=== PATIENT | male | born 1980 | race Caucasian/White ===

== ENCOUNTER 2024-12-01 22:21 | Emergency (ER) | payer SELFPAY ==
[2024-12-01 22:28] VITALS: BP 181/104
[2024-12-02 00:37] VITALS: BP 174/115
[2024-12-02 01:17] LABS: % Basophils 0.4 % (0-2); % Eosinophils 1.1 % (0-6); % Immature Granulocytes 0.2 % (0-0.5); % Lymphocytes 8.4 % (20.5-51.1); % Monocytes 5.8 % (1.7-9.3); % Neutrophils 84.1 % (42.2-75.2); Absolute Basophils 0.1 10^3/uL (0-0.2); Absolute Eosinophils 0.2 10^3/uL (0-0.7); Absolute Lymphocytes 1.1 10^3/uL (1.2-3.4); Absolute Monocytes 0.8 10^3/uL (0.1-0.6); Absolute Neutrophils 11.1 10^3/uL (1.4-6.5); Hematocrit 39.7 % (39.0-52.0); Hemoglobin 13.7 g/dL (13.0-18.0); Mean Corp Hgb Conc. 34.5 g/dL (33.0-37.0); Mean Corpuscular Hgb 28.8 pg (27.0-31.0); Mean Corpuscular Volume 83.4 fL (80.0-94.0); Mean Platelet Volume 10.3 fL (7.4-10.4); Nucleated Red Blood Cells % 0 % (-); Platelet Count 240 10^3/uL (130-400); Red Blood Cell Count 4.76 10^6/uL (4.70-6.10); Red Cell Dist. Width 12.4 % (11.5-14.5); White Blood Cell Count 13.2 10^3/uL (4.8-10.8)
[2024-12-02 01:33] LABS: Blood Urea Nitrogen 18 mg/dl (9-20); Carbon Dioxide 28 mmol/L (22-30); Chloride 105 mmol/L (98-107); Glucose 113 mg/dl (70-99); Potassium 4.4 mmol/L (3.5-5.1); Sodium 140 mmol/L (135-145); Uric Acid 9.2 mg/dl (3.5-8.5); eGFR 46.72
[2024-12-02] MEDS: DELTASONE 40 MG PO (01:56)
--- NOTE | 2024-12-02 02:07 | ED.MUSCINJ ---
HPI-Injury
General
Chief Complaint: Musculo-Skeletal Complaint
Source: patient
Exam Limitations: none
Time Seen by Provider: 12/02/24 00:42
Nursing documentation reviewed up to this point in time: agreed with
History of Present Illness-Injury
Is this injury a work related problem?: No
Is pt an associate of [facility]/[place]?: No
Initial Injury comments:
Patient to ED with complaint of right foot pain. States he hit the back of his foot with a trash can while at work 2 weeks ago. States initially had pain but this improved over the next few days. States over the past 1-2 days pain has retuened.
Broight to ED by brother for eval. He denies fever/chills.
Past History
Past History
ED Past Medical History: Other (eczema)
ED Past Surgical History: None
Social History
Tobacco: Non-smoker
Personal: Single
Living: with family
Employment: Employed ([employer])
Family History
Family History: Other (Noncontributory)
Review of Systems
Review of Systems
Allergies reviewed?: Yes
All Other Systems: ROS reviewed and negative except as documented in HPI and ROS
Constitutional: Reports no symptoms
EENT: Reports no symptoms
Respiratory: Reports no symptoms
Cardiac: Reports no symptoms
ABD/GI: Reports no symptoms
Musculoskeletal: Reports joint pain (pain to right foot)
Skin: Reports no symptoms
Neurological: Reports no symptoms
Psychiatric: Reports no symptoms
Musculoskeletal Injury Exam
Musculoskeletal Injury Exam
Right Foot:
Pain with Movement?: Moderate
Tender to palpation?: Moderate
Soft tissue swelling?: Mild
External deformity and angulation?: None
Joint effusion?: None
Contusion?: Moderate
Hematoma-local bleeding into tissue?: None
Strain- Sprain- Tear (Connective tissue injury)?: None
Crepitus with movement?: No
Joint instability?: No
Malalignment/deformity?: No
Range of motion: Limited
Distal skin color and temperature: normal-warm & good color
Capillary Refill: normal
Normal distal neurovascular exam?: Yes
Peripheral Pulses: posterior tibial (right): 3+ and dorsalis pedis (right): 3+
Phy Exam
General Physical Exam
General Presentation: well appearing and no apparent distress
General age: appears stated age
General Skin: warm and dry
General Habitus: normal
Musculoskeletal Exam
Musculoskeletal Exam: neuro vasc intact
Skin Exam
Skin Exam: normal color, warm/dry and no rash
Psychiatric Exam
Psychiatric Exam: normal mood/affect
Injury Course
Orders/Labs/Results
Orders:
Orders
12/01/24 22:28
Foot, Right 3 View [CR Foot - Right Min 3 Views] Urgent
Comment:
Reason For Exam: pain
12/02/24 00:57
Ortho Boot Right- Treatment ONCE
Short or tall?: Short
12/02/24 01:10
Basic Metabolic Panel Urgent
Complete Blood Count/With Diff Urgent
Uric Acid Urgent
12/02/24 01:36
Prednisone [Deltasone] 40 mg PO NOW STA
Abnormal Lab Results
12/02/24
01:10
WBC 13.2 H 10^3/uL
(4.8-10.8)
Absolute Neuts (auto) 11.1 H 10^3/uL
(1.4-6.5)
Absolute Lymphs (auto) 1.1 L 10^3/uL
(1.2-3.4)
Absolute Monos (auto) 0.8 H 10^3/uL
(0.1-0.6)
Neutrophils % 84.1 H %
(42.2-75.2)
Lymphocytes % 8.4 L %
(20.5-51.1)
Creatinine 1.8 H mg/dL
(0.7-1.3)
Glucose 113 H mg/dl
(70-99)
Uric Acid 9.2 H mg/dl
(3.5-8.5)
12/02/24 01:10
12/02/24 01:10
*Radiology
Radiology exam reviewed: radiology read reviewed
*Pulse Oximetry
Patient hypoxic: no
*Critical Care Note
Total Time (30-74mins, 75-104mins- exclusive of procedures): Not Applicable
ED Attending Note
-
Portions of this chart may have been created with voice recognition software.� Occasional wrong word or��sound alike� substitutions may have occurred due to the inherent limitations of voice recognition software.
Discharge Plan
Departure
Patient Disposition: Home (Routine Discharge)
Date of Disposition: 12/02/24
Time of Disposition: 01:36
Patient with high blood pressure during this ER visit?: No
Condition: Good
Covid-19: Not Applicable
Discharge Problem:
Gout
Instructions: Gout ED
Prescriptions:
New
prednisone 10 mg Tablet
See Rx Instructions .ROUTE .COMPLEX Qty: 30 0RF
Rx Instructions:
Take By Mouth:
40 mg daily x3 days, 30 mg daily x3 days,
20 mg daily x3 days, 10 mg daily x3 days.
No Action
prednisone 10 MG tablets,dose pack
10 mg PO Daily Qty: 1 0RF
Rx Instructions:
50 mg x 2 days, 40 mg x 2 days, 30 mg x 2 days, 20 mg x 2 days, 10 mg x 2 days
Referrals:
Michael Quintanilla MD [Family Provider] - Follow up in 2-3 days
Lv Suggs MD [Active] - Call in 1-3 days for appt
Interventions
Interventions:
*Risk Screen - Suicide Last Done: 12/02/24 00:39
*General Assessment Last Done: 12/01/24 22:28
ED- Fall Risk Assessment Last Done: 12/02/24 00:40
*ED COVID-19 Vaccine History Last Done: 12/01/24 22:28
*Nursing Disposition Last Done: 12/02/24 02:06
ED-Musculoskeletal Assessment Last Done: 12/02/24 00:38
Discharge Date and Time
Discharge Date/Time: 12/02/24 02:06
Print Language: PORTUGUESE
== END 2024-12-02 02:06 | disposition home or self-care (01) ==
LOC: EMR 22:21
PROVIDERS: Nurse Practitioner; EMERGENCY PHYSICIAN Student in an Organized Health Care Education/Training Program; FAMILY PHYSICIAN Family Medicine
DX: M10.9 Gout, unspecified (principal)
CPT/HCPCS: 99283; 73630; 80048; 84550; 85025